=== PATIENT | female | born 1970 | race Caucasian/White ===

== ENCOUNTER 2022-12-28 04:35 | Emergency (ER) | payer OTHER ==
[~2022-12-28] VITALS: Ht 165.1 cm; Wt 83.9 kg
[2022-12-28 05:00] VITALS: BP 137/88
[2022-12-28] MEDS ORDERED: HYDROCODONE-AC1 EA19 PO (06:07)
[2022-12-28] MEDS ORDERED: CLEOCIN T60 G1 TOP (06:07)
[2022-12-28] MEDS ORDERED: AMOX-CLAV 875-1 EAC5 (06:07)
[2022-12-28 06:41] LABS: BASOPHILS ABSOLUTE AUTO 0.04 K/mm3 (0.00-0.23); BASOPHILS PERCENT AUTO 0 % (0-2); EOSINOPHILS ABSOLUTE AUTO 0.11 K/mm3 (0.00-0.68); EOSINOPHILS PERCENT AUTO 1 % (0-6); Hematocrit 38.9 % (33.0-51.0); Hemoglobin 13.5 g/dL (11.5-16.0); IMMATURE GRAN ABSOLUTE AUTO 0.06 K/mm3 (0.00-0.10); IMMATURE GRAN PERCENT AUTO 0 % (0-1); LYMPHOCYTES ABSOLUTE AUTO 2.26 K/mm3 (0.84-5.20); LYMPHOCYTES PERCENT AUTO 16 % (21-46); MONOCYTES ABSOLUTE AUTO 1.48 K/mm3 (0.16-1.47); MONOCYTES PERCENT AUTO 10 % (4-13); Mean Corpuscular HGB 33.3 pg (26.0-34.0); Mean Corpuscular HGB Conc 34.7 g/dL (31.5-36.5); Mean Corpuscular Volume 96 fL (80-100); Mean Platelet Volume 9.6 fL (9.1-12.4); NEUTROPHILS ABSOLUTE AUTO 10.34 K/mm3 (1.96-9.15); NEUTROPHILS PERCENT AUTO 72 % (41-73); Platelet Count 287 K/mm3 (150-400); RDW Coefficient Variation 11.7 % (11.7-14.2); RDW Standard Deviation 41.2 fL (35.1-46.3); Red Blood Cell Count 4.05 M/mm3 (3.80-5.20); White Blood Cell Count 14.29 K/mm3 (4.00-11.30)
[2022-12-28 07:01] LABS: Bun/Creatinine Ratio 18.1 (12.0-20.0); Calcium, Blood 8.3 mg/dL (8.5-10.1); Creatinine, Blood 0.83 mg/dL (0.40-1.00); Potassium, Blood 3.6 mmol/L (3.5-5.5)
[2022-12-28] MEDS ORDERED: AMOCLA875 PO (09:02)
[2022-12-28] MEDS ORDERED: OXYC5 PO (09:02)
[2022-12-28] MEDS ORDERED: ONDA4ODT MM (09:02)
== END 2022-12-28 09:20 | disposition home or self-care (01) ==
LOC: ER 04:35
PROVIDERS: Student in an Organized Health Care Education/Training Program
DX: K61.0 Anal abscess (principal); L03.315 Cellulitis of perineum
CPT/HCPCS: 46050; 72193; 80048; 85025; 85651; 86140; 96361-59; 96374-59; 96375-59; 99284-25; A9270; J2270; J2405; J7030; Q9967